=== PATIENT | female | born 1965 | race Caucasian/White ===

== ENCOUNTER 2017-12-26 00:41 | Inpatient (IN) | END 2018-01-02 13:25 | disposition home or self-care (01) | DRG 74 ==

== ENCOUNTER 2018-01-12 19:04 | Emergency (ER) | END 2018-01-13 01:56 | disposition home or self-care (01) ==

== ENCOUNTER 2018-01-22 22:32 | Emergency (ER) | END 2018-01-23 05:41 | disposition home or self-care (01) ==